=== PATIENT | female | born 1975 | race African-American/Black ===

== ENCOUNTER 2018-06-19 11:21 | Emergency (ER) | payer OTHER ==
[~2018-06-19] VITALS: Ht 167.6 cm; Wt 112.0 kg
[~2018-06-19 11:21] MED LIST: CYCL-331 PO; HYDR12.58 PO
--- NOTE | 2018-06-19 11:43 | EKG ---
[address] [address] Test Date: 2018-06-19 Test Time: 11:36:41 Pat Name: DYLAN SAUCEDO Department: Room: Gender: F Test Lead Application Testing: : 1975 Requested By: DENNY RIDLEY Order Number: [id number] Reading MD: Len Worthington Measurements Intervals [place] Rate: 72 P: 44 RI: 146 QRS: 41 QRSD: 82 T: 19 QT: 380 QTc: 418 Interpretive Statements SINUS RHYTHM NORMAL ECG Electronically Signed On 06-24-2018 15:25:16 RATE ENGINEER by Len Worthington
[2018-06-19] MEDS ORDERED: HYDROcodone/APAP 10/325 1 TAB TABLET ONE (11:58)
[2018-06-19] MEDS ORDERED: CYCL-331 PO (11:58)
[2018-06-19] MEDS ORDERED: HYDROcodone/APAP 10/325 1 TAB TABLET PO ONE (12:00)
[2018-06-19 12:08] VITALS: BP 115/76
--- NOTE | 2018-06-19 14:11 | ED.ADGEN ---
Past History Past Medical History: Anxiety, Depression, Other Past Surgical History: Tubal ligation Alcohol Use: None Drug Use: None Adult General Chief Complaint Chief Complaint Neck and neck pain. HPI HPI Patient is a 43-year-old female with history of chronic neck and back pain who presents with acute neck and upper thoracic pain radiating to arm upon waking yesterday morning.. Patient states pain goes up and down her spine it is worse with palpation and movement and similar to chronic back pain. Patient takes ibuprofen and Tylenol and occasional muscle relaxers previous episodes but is not currently have a prescription for muscle relaxer. Denies motor weakness. No fall, repetitive strain type injury. No other acute symptoms or complaints.] Review of Systems Review of Systems Review symptoms as per history of present illness. All other review symptoms are negative. All other systems were reviewed and found to be within normal limits, except as documented in this note. Current Medications Current Medications Current Medications Medications (Trade) Dose Ordered Sig/Geraldine Start Time Stop Time Status Last Admin Dose Admin Acetaminophen/ Hydrocodone Bitart (Lortab 10/325) 1 tab STK-MED ONCE 06/19/18 11:58 06/19/18 12:00 DC Allergies Allergies Allergies Coded Allergies Type Severity Reaction Last Updated Verified No Known Drug Allergies 03/15/14 No Physical Exam Physical Exam Constitutional: Well developed, well nourished, moderate discomfort secondary to pain. [] HENT: Normocephalic, atraumatic, bilateral external ears normal, oropharynx moist, no oral exudates, nose normal. [] Eyes: PERRLA, EOMI, conjunctiva normal, no discharge. [] Neck: Normal range of motion, lower cervical paracervical muscle pain tenderness. [] Cardiovascular:Heart rate regular rhythm, no murmur [] Lungs & Thorax: Bilateral breath sounds clear to auscultation. [] Back: Diffuse back pain, paraspinal tenderness. [] Neurologic: Alert and oriented X 3, normal motor function, normal sensory function, no focal deficits noted. [] Psychologic: Affect normal, judgement normal, mood normal. [] Current Patient Data Vital Signs Vital Signs Date Time Temp Pulse Resp B/P (MAP) Pulse Ox O2 Delivery O2 Flow Rate FiO2 06/19/18 11:21 97.8 80 18 97 EKG EKG [] Radiology/Procedures Radiology/Procedures [] Course & Med Decision Making Course & Med Decision Making Pertinent Labs and Imaging studies reviewed. (See chart for details) [<echanical back pain reproduces on exam. No neurologic compromise. We'll treat supportively with PCP follow-up as needed.] Final Impression Final Impression [Thoracic back pain] Pio Disclaimer Pio Disclaimer This electronic medical record was generated, in whole or in part, using a voice recognition dictation system. DENNY RIDLEY DO Jun 19, 2018 14:11
== END 2018-06-19 12:12 | disposition home or self-care (01) ==
LOC: ER 11:21
DX: M54.6 Pain in thoracic spine (principal); G89.29 Other chronic pain; M54.2 Cervicalgia; M25.511 Pain in right shoulder
CPT/HCPCS: 93005; 99283